=== PATIENT | female | born 1960 | race Caucasian/White ===

== ENCOUNTER 2019-08-24 15:14 | Emergency (ER) | payer MEDICAID, OTHER ==
[~2019-08-24] VITALS: Ht 157.5 cm; Wt 83.0 kg
[~2019-08-24 15:14] MED LIST: LIDOcaine 1% w/epiNEPHrine 1:200,000 30ml vial ONE
[2019-08-24 15:17] VITALS: BP 122/71
[2019-08-24] MEDS ORDERED: HYDR-3965 PO (18:18)
[2019-08-24] MEDS ORDERED: CLIN150C2 PO (18:18)
[2019-08-24] MEDS ORDERED: L. R1CAP4 PO (18:18)
[2019-08-24] MEDS ORDERED: HYDROcodone/acetaminophen 5mg/325mg tablet PO ONE (18:20)
[2019-08-26] MEDS ORDERED: FLUC150T22 PO (19:47)
== END 2019-08-24 18:29 | disposition home or self-care (01) ==
LOC: ER 15:21
DX: L02.01 Cutaneous abscess of face (principal)
CPT/HCPCS: 10060; 99284